=== PATIENT | female | born 1980 | race Caucasian/White ===

== ENCOUNTER 2016-07-05 09:31 | Day surgery (SDC) | payer OTHER ==
[2016-07-04 13:17] VITALS: Ht 160 cm; Wt 77.2 kg
[2016-07-05] VITALS (8 sets, daily range): BP systolic 106–122; BP diastolic 59–74; PULSE 88–102; RESP 12–18
[~2016-07-05] VITALS: Ht 160 cm; Wt 77.2 kg
[~2016-07-05 09:31] MED LIST: ACETAMINOPHEN 1000 MG/100 ML IVPB ONE; CEFAZOLIN 2 GM/50 ML (PMX) 50 ML IVPB SCH; SOD CHLORIDE 0.9% 1,000 ML IV SCH
[2016-07-05] MEDS ORDERED: BUPIVACAINE 0.5%/EPI (SDV) 30 ML INJ ONE ×2 (11:37→12:39)
[2016-07-05] MEDS ORDERED: PROPOFOL 20 ML ONE (12:02)
[2016-07-05] MEDS ORDERED: LIDOCAINE 2% (SDV) 5 ML INJ ONE (12:02)
[2016-07-05] MEDS ORDERED: MIDAZOLAM 1 MG/ML 2 ML INJ ONE (12:02)
[2016-07-05] MEDS ORDERED: FENTAnyl 50 MCG/ML VIAL ONE (12:17)
[2016-07-05] MEDS ORDERED: DEXAMETHASONE 4 MG/ML 1 ML INJ ONE (12:28)
[2016-07-05] MEDS ORDERED: ONDANSETRON 4 MG INJ ONE (12:28)
[2016-07-05] MEDS ORDERED: METOCLOPRAMIDE 10 MG INJ ONE (12:28)
[2016-07-05] MEDS ORDERED: CEFAZOLIN 1 GM INJ ONE (12:28)
[2016-07-05] MEDS ORDERED: PHENYLephrine (100 MCG/ML) 5ML SYG ONE (12:31)
[2016-07-05] MEDS ORDERED: MEPERIDINE 25 MG INJ IV PRN (13:00)
[2016-07-05] MEDS ORDERED: ONDANSETRON 4 MG INJ IV PRN (13:00)
[2016-07-05] MEDS ORDERED: DIPHENHYDRAMINE 50 MG INJ IV PRN (13:00)
[2016-07-05] MEDS ORDERED: PROCHLORPERAZINE 10 MG INJ IV PRN (13:00)
[2016-07-05] MEDS ORDERED: FENTAnyl 50 MCG/ML VIAL IV PRN (13:00)
[2016-07-05] MEDS ORDERED: HYDROmorphONE (0.2 MG/ML) 10ML SYG IV PRN (13:00)
[2016-07-05] MEDS ORDERED: oxyCODONE 5 MG TAB PO PRN (13:00)
--- NOTE | 2016-07-05 13:15 | OPR ---
DATE OF OPERATION: 07/05/2016 PREOPERATIVE DIAGNOSIS: Left nipple lesion. POSTOPERATIVE DIAGNOSIS: Left nipple lesion. OPERATION PERFORMED: Excision of left nipple lesion. ANESTHESIA: General. ANESTHESIOLOGIST: Emeli Allen MD SURGEON: Shane Ko MD [employer]PER[employer]: Jessa Gee MD INDICATIONS FOR PROCEDURE: The patient is a 36-year-old female who presented with change in her lef t nipple with persistent bloody drainage. She was counseled as to the need for definitive diagnosis , which would require excision of the nipple lesion. She consented and was scheduled for surgery. DESCRIPTION OF PROCEDURE: The patient was brought to the operating theater, placed under general an esthesia. The left breast was prepped and draped in the usual sterile fashion. The lesion was tawnya ing from the medial side of the nipple and growing in an exophytic fashion. It was excised with 15 b lade scalpel and sent for permanent pathologic analysis. Bleeding was controlled with cautery, and the skin incision was then reapproximated with 6-0 PDS sutures in interrupted fashion. Sterile dres sing was then applied. The area was also infiltrated with 0.5% Marcaine local anesthetic with epine phrine. The patient tolerated procedure well. The estimated blood loss was 5 mL. There were no co mplications and the patient was transported in stable condition to the recovery room. Dictated By: SHANE KO MD TL/KARLA Conf#: [id number] DID#: [id number] CC: SMITA GEE MD;*EndCC*
[2016-07-05 13:25] LABS: ADD SCAN DIFF NO
[2016-07-05 13:27] LABS: BASOPHIL # 0.1 10^3/ul (0.0-0.1); BASOPHILS % 0.9 % (0.0-2.0); EOSINOPHILS # 0.2 10^3/ul (0.0-0.5); EOSINOPHILS % 2.8 % (0.0-7.0); HEMATOCRIT 38.8 % (37.0-47.0); HEMOGLOBIN 12.9 g/dl (12.0-16.0); MEAN CORPUSCULAR HEMOGLOBIN 28.7 pg (29.0-33.0); MEAN CORPUSCULAR HGB CONC 33.2 g/dl (32.0-37.0); MEAN CORPUSCULAR VOLUME 86.2 fl (82.0-101.0); MEAN PLATELET VOLUME 10.2 fl (7.4-10.4); MONOCYTE # 0.4 10^3/ul (0.3-0.9); MONOCYTES % 7.1 % (0.0-11.0); NEUTROPHIL # 3.1 10^3/ul (1.6-7.5); PLATELET COUNT 301 10^3/UL (140-415); RED CELL DISTRIBUTION WIDTH 12.6 % (11.5-14.5); WHITE BLOOD COUNT 5.7 10^3/ul (4.8-10.8)
[2016-07-05 13:31] LABS: INR 0.98; PARTIAL THROMBOPLASTIN TIME 31.4 Sec (25.0-35.0)
[2016-07-05 13:34] LABS: CALCIUM 9.3 mg/dl (8.4-10.2); CREATININE 0.57 mg/dl (0.44-1.00)
== END 2016-07-05 14:30 | disposition home or self-care (01) ==
LOC: SDS 09:31
PROVIDERS: ATTEND Surgery Surgical Oncology
DX: N64.89 Other specified disorders of breast (principal); D24.2 Benign neoplasm of left breast
CPT/HCPCS: 19120; 80048; 85025; 85610; 85730; 88307; J0131; J0690; J1100; J2250; J2370; J2405; J2765; J3010; Z7512; Z7610